=== PATIENT | male | born 1990 | race Caucasian/White ===

== ENCOUNTER 2020-03-26 02:56 | Emergency (ER) | payer OTHER ==
[~2020-03-26] VITALS: Ht 167.6 cm; Wt 81.7 kg
[~2020-03-26 02:56] MED LIST: NORCO 5-325 TA1 EACH PO
[2020-03-26 02:59] VITALS: BP 144/86
[2020-03-26 03:48] LABS: ABSOLUTE NEUTROPHILS 3.5 thou/uL (1.4-8.2); BASOPHILS 0.2 % (0.0-2.0); EOSINOPHILS 1.7 % (0.0-3.0); HEMOGLOBIN 16.2 gm/dL (14.0-18.0); LYMPHOCYTES 40.2 % (24.0-44.0); MCH 31.5 pg (26.0-34.0); MCHC 34.4 g/dL (28.0-37.0); MCV 91.8 fL (80.0-100.0); MONOCYTES 11.5 % (1.0-8.0); PLATELET COUNT 279 thou/uL (150-400); POLYS 46.4 % (36.0-66.0); RBC 5.12 mil/uL (4.50-6.00); RDW 13.8 % (10.5-14.5); WBC 7.4 thou/uL (4.0-11.0)
[2020-03-26 03:59] LABS: CALCIUM 9.1 mg/dL (8.5-10.1); CREATININE 1.3 mg/dL (0.7-1.3); POTASSIUM 3.1 mmol/L (3.5-5.1)
[2020-03-26 04:05] LABS: ALBUMIN 3.9 g/dL (3.4-5.0); TOTAL BILIRUBIN 0.6 mg/dL (0.2-1.0)
[2020-03-26] MEDS ORDERED: PEPCID20 MG PO (05:01)
== END 2020-03-26 05:10 | disposition home or self-care (01) ==
LOC: ER 02:56
PROVIDERS: Emergency Medicine
DX: R10.31 Right lower quadrant pain (principal); Z87.891 Personal history of nicotine dependence; Z79.899 Other long term (current) drug therapy